=== PATIENT | female | born 1990 | race Caucasian/White ===

== ENCOUNTER 2017-03-14 17:44 | Emergency (ER) | payer OTHER ==
[2017-03-14 18:32] LABS: microscopic required? NO
[2017-03-14 18:47] LABS: UA SPECIFIC GRAVITY <=1.005 (1.005-1.035); urine erythrocyte NEGATIVE (NEGATIVE)
[2017-03-14 18:50] LABS: RED CELL DISTRIBUTION WIDTH 12.6 % (11.5-14.5)
[2017-03-14 18:53] LABS: PLATELET COUNT 260 x10^3mcL (130-400)
[2017-03-14 19:05] LABS: CALCIUM 8.8 mg/dL (8.5-10.1); CARBON DIOXIDE 28.3 mmol/L (21-32); CHLORIDE SERUM 101 mmol/L (98-107); CREATININE SERUM 0.8 mg/dL (0.6-1.0); GFR1 > 60 mL/min; GLUCOSE SERUM 100 mg/dL (74-106); POTASSIUM SERUM 3.6 mmol/L (3.5-5.1); SODIUM SERUM 138 mmol/L (136-145)
[2017-03-14 19:07] LABS: BAND NEUTROPHIL 0 % (0-10); MONOCYTE 10 % (0-7); SEGMENTED NEUTROPHILS 63 % (37-75); rbc morphology (normal/abnorm) NORMAL (NORMAL)
[2017-03-14 19:09] LABS: ALBUMIN 4.1 g/dL (3.4-5.0); ALKALINE PHOSPHATASE 75 U/L (46-116); ALT/SGPT 15 U/L (14-59); AMYLASE 60 U/L (25-115); AST/SGOT 25 U/L (15-37); BILIRUBIN TOTAL 0.6 mg/dL (0.20-1.00); LIPASE 92 IU/L (73-393); TOTAL PROTEIN, SERUM 7.4 g/dL (6.4-8.2)
[2017-03-14 21:01] VITALS: BP 139/90
== END 2017-03-14 20:18 | disposition home or self-care (01) ==
LOC: ED 17:44
PROVIDERS: Emergency Medicine
DX: R10.33 Periumbilical pain (principal); R11.0 Nausea; Z88.1 Allergy status to other antibiotic agents
CPT/HCPCS: 83880; J1885; J7030; Q0092; Q9967